=== PATIENT | female | born 1950 | race Caucasian/White ===

== ENCOUNTER 2024-09-09 08:44 | Outpatient (CLI) | payer MEDICARE, SELFPAY ==
--- NOTE | ~2024-09-09 | CT_ITS ---
CT IAC/mastoids BI wo con Ordering provider: Jaylen Calderon M.D. Technique: CT temporal bones was performed by obtaining thin slice axial images. Coronal and sagittal reformatted images were also obtained. No contrast was administered. Reason for exam: . Central perforation of tympanic membrane, right ear . Comparison: None. Findings: RIGHT TEMPORAL BONE: Minimal opacification the mastoid air cells seen posteriorly and inferiorly othe rwise, The mastoid air cells are normal and well aerated. The external auditory canal is normal and w ell aerated. The tympanic membrane as visualized is slightly retracted. Possibility of a defect seen anteriorly is not excluded. Otherwise normal. Clinical evaluation advised. The middle ear (including the epitympanum, mesotympanum and hypotympanum) is normal and well aerated. The tegmen tympani is int act. The scutum is normal. The auditory ossicles are normal. The cochlea, vestibule, vestibular and cochlear aqueduct are normal. The semicircular canals are normal. The facial nerve canal is normal . The internal auditory canal is normal. The carotid canal and jugular foramen are normal. The tem poromandibular joint is normal. LEFT TEMPORAL BONE: The mastoid air cells are normal and well aerated. The external auditory canal is normal and well aerated. The tympanic membrane as visualized is intact and normal. The middle ear ( including the epitympanum, mesotypanum and hypotympanum) is normal and well aerated. The tegmen tympa ni is intact. The scutum is normal. The auditory ossicles are normal. The cochlea, vestibule, vest ibular and cochlear aqueduct are normal. The semicircular canals are normal. The facial nerve canal is normal. The internal auditory canal is normal. The carotid canal and jugular foramen are ewa l. The temporomandibular joint is normal. Slight widening of the spaces around the brain in the frontal areas is noted which may indicate CSF h ygromas. Proper imaging is advised. Right sphenoid sinus disease. Otherwise, The visualized brain par enchyma, paranasal sinuses, and superficial soft tissues are normal for patient's age. IMPRESSION: Slight widening of the spaces around the frontal lobes. Proper imaging is advised to exclude or confi rm CSF hygromas. Right sphenoid sinusitis. Possible slight retraction of the tympanic membrane. Indication anteriorly cannot be excluded. Clinical evaluation advised. Minimal effusion the right mas toid air cells posteriorly and inferiorly. Otherwise no definite abnormality seen bilaterally. Reviewed, dictated and finalized at location A. IMPRESSION: Slight widening of the spaces around the frontal lobes. Proper imaging is advis ed to exclude or confirm CSF hygromas. Right sphenoid sinusitis. Possible slight retraction of the tympanic membrane. Indication anteriorly cannot be excluded. Clinical evaluation advised. Minimal effusion the right mastoid air cells posteriorly and inferiorly. Otherwise no d efinite abnormality seen bilaterally.
== END 2024-09-09 08:45 | disposition home or self-care (01) ==
LOC: MICIMG 08:44
PROVIDERS: PCP Family Medicine; Visit Provider Otolaryngology
DX: H72.01 Central perforation of tympanic membrane, right ear (principal); H90.6 Mixed conductive and sensorineural hearing loss, bilateral; H70.10 Chronic mastoiditis, unspecified ear; J32.3 Chronic sphenoidal sinusitis
CPT/HCPCS: 70480

== ENCOUNTER 2024-10-20 09:58 | Outpatient (CLI) | payer MEDICARE, SELFPAY ==
--- OUTSIDE RECORDS SUMMARY | 2024-10-20 10:24 | XMS_ITS | Encounter Summary ---
Author Organization [facility] Address [facility] [place] [address] Care Team Providers Care Liquor Rectifier Name Role Phone Cb Rivas MD Primary Care Provider [phone] Belinda Hutton MD Unavailable Encounter Details Date Type Department Care Team (Late st Contact Info) Description 08/31/2018 Abstract SFL CONVERSION [address] [place] [address] , Generic Conversion, Social History Tobacco Use Types Packs/Day Years Used Date Smoking Tobacco: Never Assessed Comments Unknown Sex and Gender Information Value Date Recorded Sex Assigned at Female 01/22/2024 3:47 PM CDT Legal Sex Female 10:16 PM MENTAL HEALTH SPECIALIST Gender Identity Female 01/22/2024 3:47 PM CDT Sexual Orientation Straight 01/22/2024 3: 47 PM CDT documented as of this encounter Plan of Treatment Upcoming Encounters Date Type Department Care Team (Late st Contact Info) Description 02/11/2025 11:30 AM MENTAL HEALTH SPECIALIST Office Visit [facility] [address] [place] [address] Belinda Hutton MD [address], [place] [id number] documented as of this encounter Visit Diagnoses Not on filedocumented in this encounter Care Teams Liquor Rectifier Relationship Specialty Start Date End Date Cb Rivas MD [address] [place] [address] PCP - General FAMILY PRACTICE 03/17/19 Belinda Hutton MD [address] [place] [address] Consulting Physician CARDIOVASCULAR DISEASE 01/03/23 documented as of this encounter
--- OUTSIDE RECORDS SUMMARY | 2024-10-20 10:24 | XMS_ITS | Clinical Summary ---
Author Organization [facility] Address [facility] [place] [address] Care Team Providers Care Printed Circuit Board Designer Name Role Phone Cb Rai MD Primary Care Provider [phone] Belinda Hutton MD Unavailable Allergies Active Allergy Reactions Criticality Noted Date Comments Codeine Nausea and Vomiting,Unknown 06/30/19 16 Medications atorvastatin (LIPITOR) 20 MG tablet Take 1 tablet (20 mg total) by mouth nightly at bedtime. Active pantoprazole EC (PROTONIX) 40 MG tablet Take 1 tablet (40 mg total) by mouth daily. Active cycloSPORINE (RESTASIS) 0.05 % ophthalmic emulsion 1 drop. As directed Active aspirin EC (ECOTRIN) 81 MG tablet Take 1 tablet (81 mg total) by mouth daily. Active Vitamin D3 (VITAMIN D) 50 mcg tablet Take 1 tablet (50 mcg total) by mouth daily. Active Fluocinolone Acetonide 0.01 % Oil Place 1 drop into both ears daily. Pt hasn't started taking yet 12/04/2023 Active Active Problems Problem Noted Date Diagnosed Date Serotonin syndrome 01/22/2024 Hyperlipidemia 01/22/2024 MDD (major depressive disorder) 01/22/2024 GERD (gastroesophageal reflux disease) Vitamin D deficiency 01/22/2024 Family History Medical History Relation Comments Heart Attack Brother Heart Attack Father Open Heart Father ischemic heart disease Father Heart Attack Maternal Grandfather Heart Attack Mother ischemic heart disease Mother Breast Cancer Sister Heart Attack Sister Relation Status Comments Brother Father Maternal Grandfather Mother Sister Social History Tobacco Use Types Packs/Day Years Used Date Smoking Tobacco: Never Tobacco Cessation:Counseling Given: Not Answered Alcohol Use Standard Drinks/Week Comments Never 0 (1 standard drink = 0.6 oz pur e alcohol) B1300 Health Literacy Answer Date Recor ded How often do you need to hav e someone help you when you read instructions, pamphlets, or other written material from your doctor or pharmacy? Never 01/22/2024 [facility] Utilities Answer Date Recorded In the past 12 months has th e electric, gas, oil, or water company threatened to shut off services in your home? No 01/22/2024 Humiliation, Afraid, Rape, and Kick questionnair e Answer Date Recorded Within the last year, have y ou been afraid of your partner or ex-partner? No 01/22/2024 Within the last year, have y ou been humiliated or emotionally abused in other ways by your partner or ex-partner? No Within the last year, have y ou been kicked, hit, slapped, or otherwise physically hurt by your partner or ex-partner? No 01/22/2024 Within the last year, have y ou been raped or forced to have any kind of sexual activity by your partner or ex-partner? No 01/22/2024 Social Connection and Isolat ion Panel [NHANES] Answer Date Recorded In a typical week, how many times do you talk on the phone with family, friends, or neighbors? More than three times a week 01/22/2024 How often do you get togethe r with friends or relatives? Once a week 01/22/2024 How often do you attend [facility] or restorationist services? Never 01/22/2024 Do you belong to any clubs o r organizations such as islam groups, unions, fraternal or athletic groups, or school groups? No 01/22/2024 How often do you attend meet ings of the clubs or organizations you belong to? Never 01/22/2024 Are you , , di vorced, , never , or living with a partner? 01/22/2024 AUDIT-C Answer Date Recorded Q1: How often do you have a drink containing alcohol? Never 01/22/2024 Q2: How many drinks containi ng alcohol do you have on a typical day when you are drinking? Patient does not drink Q3: How often do you have si x or more drinks on one occasion? Never 01/22/2024 Overall Financial Resource Strain (CARDIA) Answe r Date Recorded How hard is it for you to pa y for the very basics like food, housing, medical care, and heating? Not hard at all 01/22/2024 [facility] - Occupational Stress Questionnaire Answer Date Recorded Do you feel stress - tense, restless, nervous, or anxious, or unable to sleep at night because your mind is troubled all the time - these days? To some extent 01/22/2024 Exercise Vital Sign Answer Date Recorde d On average, how many days pe r week do you engage in moderate to strenuous exercise (like a brisk walk)? 2 days 01/22/2024 On average, how many minutes do you engage in exercise at this level? 20 min 01/22/2024 Hunger Vital Sign Answer Date Recorded Within the past 12 months, y ou worried that your food would run out before you got the money to buy more. Never true 01/22/20 24 Within the past 12 months, t he food you bought just didn't last and you didn't have money to get more. Never true 01/22/2024 PRAPARE - Transportation Answer Date Re corded In the past 12 months, has l ack of transportation kept you from medical appointments or from getting medications? No 12/25 In the past 12 months, has l ack of transportation kept you from meetings, work, or from getting things needed for daily living? No 01/22/2024 Housing Stability Vital Sign Answer [place] e Recorded In the last 12 months, was t here a time when you were not able to pay the mortgage or rent on time? No 01/22/2024 In the past 12 months, how m any times have you moved where you were living? 0 01/22/2024 At any time in the [facility], were you homeless or living in a senior living (including now)? No 01/22/2024 Comments No Sex and Gender Information Value Date Recorded Sex Assigned at Female 01/22/2024 3:47 PM CDT Legal Sex Female 10:16 PM SPINNER FIXER Gender Identity Female 01/22/2024 3:47 PM CDT Sexual Orientation Straight 01/22/2024 3: 47 PM CDT Last Filed Vital Signs Vital Sign Reading Time Taken Comments Blood Pressure 142/76 01/24/2024 4:23 AM CDT Pulse 77 01/24/2024 4:23 AM CDT Temperature 35.7 C (96.3 F) 01/24/2024 4:23 AM CDT Respiratory Rate 16 01/24/2024 4:23 AM CDT Oxygen Saturation 95% 01/24/2024 4:23 AM CDT Inhaled Oxygen Concentration - - Weight 83.9 kg (185 lb) 01/24/2024 4:23 AM CDT Height 162.6 cm (5' 4) 01/22/2024 3:53 PM CDT Body Mass Index 31.76 01/22/2024 3:53 PM CDT Plan of Treatment Upcoming Encounters Date Type Department Care Team (Late st Contact Info) Description 02/11/2025 11:30 AM SPINNER FIXER Office Visit [facility] [place] [id number] Belinda Hutton MD [address] [place] [address] Health Maintenance Due Date Last Done Comments Colorectal Cancer Screening Colonoscopy (10 Years) 1950 Hepatitis C 12/02/1969 DTaP, Tdap and Td Vaccines ( 1 - Tdap) 12/02/1970 Pneumococcal Vaccine: 50+ Years (1 of 1 - PCV) 12/02/2001 Zoster Vaccines (1 of 2) 12/02/2001 Annual Medicare Wellness Visit 12/02/2016 COVID-19 Vaccine (1 - 2023-2 5 season) 2023 Mammogram Screening 12/19/2025 12/20/2023, 10/13/2022, 08/31/2020 RSV Immunization or 60+ Years (1 - 1-dose 75+ series) 12/02/2026 Dexa Scan (General) Completed 01/25/2023 Meningococcal B Vaccine Aged Out No l onger eligible based on patient's age to complete this topic Meningococcal Vaccine Aged Out No drea risa eligible based on patient's age to complete this topic RSV Immunizations Under 20 Months Aged Out No longer eligible b ased on patient's age to complete this topic Procedures Procedure Name Priority Date/Time Associated Diagnosis Comments MG SCREENING W HENRIK STEPHANIE DIGI Routine 12/20/2023 8:41 AM CDT Visit for screening mammogram BONE DENSITY/DEXA Routine 01/25/2023 10: 11 AM CDT Post-menopausal from Last 3 Months or Most Recently Relevant to Health Maintenance Results * MG SCREENING W HENRIK STEPHANIE DIGI (12/20/2023 8:41 AM CDT) Anatomical Region Laterality Modality Breast Bilateral Mammography 12/20/2023 9:12 AM CDT Impressions 12/20/2023 9:13 AM CDT IMPRESSION: No suspicious change since the previous exams. Recommendation: 1: Routine Screening Bilateral in 1 Year Assessment: ACR BI-RADS 2 - BENIGN FINDING(S) Ordered By: CB RAI Interpreted By: Curtis Celeste MD, 12/20/2023 9:12 AM Narrative 12/20/2023 9:13 AM CDT [address] [place] [address] Examination: Digital screening mammogram with CAD. Clinical history: Asymptomatic patient presents for routine screening. Comparison: 10/13/2022, 08/31/2020, 05/07/2018, 05/10/2016. Technique: Bilateral digital mammograms. The exam was interpreted with the use of a computer-aided detection (CAD) system. Additional 3-D tomosynthesis images were acquired. Tissue density: The breast tissue contains scattered fibroglandular densities. Findings: The breast tissue contains scattered fibroglandular densities. Metallic biopsy marker on the right again evident. No suspicious mass, microcalcification or area of architectural distortion can be identified. From a mammographic standpoint, routine followup in one year would seem adequate. us Cb Rai MD MAMMO Final Result * BONE DENSITY/DEXA (01/25/2023 10:11 AM CDT) Anatomical Region Laterality Modality Bone Bone Density 01/25/2023 2:07 PM CDT Impressions 01/25/2023 2:09 PM CDT Impression: 1. Within normal limits in the lumbar spine. 2. Consistent with osteoporosis in the right hip and osteopenia in the left hip. Ordered By: CB RAI Interpreted By: Curtis Celeste MD, 01/25/2023 2:07 PM Narrative 01/25/2023 2:09 PM CDT Examination: DEXA Bone densitometry Clinical history: Postmenopausal. Osteoporosis screening. Comparison: None. Technique: DEXA bone mineral density evaluation was performed in the AP projection over the lumbar spine and over both hips in the AP projection utilizing standard imaging techniques. Assessment: The BMD measured at the AP spine L1-L4 is 0.969 g/cm2 with a T-score of -0.7 and a Z-score of 1.5. Bone density is up to 10% below young normal. This patient is considered normal according to the World Health Organization (WHO) criteria. Fracture risk is low. The BMD measured at the femoral neck left is 0.690 g/cm2 with a T-score of -1.4 and a Z-score of 0.4. The patient is considered osteopenic according to World Health Organization (WHO) criteria. Bone density is between 10 and 25% below young normal. Fracture risk is moderate. Treatment is advised. The BMD measured at the femoral neck right is 0.528 g/cm2 with a T-score of -2.9 and a Z-score of -1.0. This patient is considered osteoporotic according to the world health organizations (WHO) criteria. Fracture risk is high. Pharmacological treatment, if not already prescribed should be considered. If pharmacological treatment is utilized, a followup bone density is recommended in one year to monitor response to therapy. FRAX 10-year fracture risk: Major Osteoporotic Fracture: 25%. Hip Fracture: 7.5%. Recommendations: All patients should ensure an adequate intake of dietary calcium and vitamin D. The NOF recommend adults under the age of 50 need 1000 mg of calcium and 400-800 IU of vitamin D daily. Effective therapy for the prevention and treatment of osteoporosis include biphosphonates. Follow-up: People with diagnosed cases of osteoporosis or at high risk for fracture should have regular bone mineral density test. For patients eligible for Medicare, routine testing is allowed once every 2 years. Testing frequency can be increased to one year for patients who have rapidly progressing disease, those who are receiving or discontinuing medical therapy to restore bone mass, or have additional risk factors. Based on these results, a followup exam is recommended in 1-2 years. Procedure Note Curtis Celeste MD - 01/25/2023 Examination: DEXA Bone densitometry Clinical history: Postmenopausal. Osteoporosis screening. Comparison: None. Technique: DEXA bone mineral density evaluation was performed in the APprojection over the lumbar spine and over both hips in the AP projectionutilizing standard imaging techniques. Assessment: The BMD measured at the AP spine L1-L4 is 0.969 g/cm2 with a T-score of-0.7 and a Z-score of 1.5. Bone density is up to 10% below youngnormal. This patient is considered normal according to the World HealthOrganization (WHO) criteria. Fracture risk is low. The BMD measured at the femoral neck left is 0.690 g/cm2 with a T-score of-1.4 and a Z-score of 0.4. The patient is considered osteopenicaccording to World Health Organization (WHO) criteria. Bone density isbetween 10 and 25% below young normal. Fracture risk is moderate.Treatment is advised. The BMD measured at the femoral neck right is 0.528 g/cm2 with a T-scoreof -2.9 and a Z-score of -1.0. This patient is considered osteoporoticaccording to the world health organizations (WHO) criteria. Fracture riskis high. Pharmacological treatment, if not already prescribed should beconsidered. If pharmacological treatment is utilized, a followup bonedensity is recommended in one year to monitor response to therapy. FRAX 10-year fracture risk: Major Osteoporotic Fracture: 25%. Hip Fracture: 7.5%. Recommendations: All patients should ensure an adequate intake of dietary calcium andvitamin D. The NOF recommend adults under the age of 50 need 1000 mg ofcalcium and 400-800 IU of vitamin D daily. Effective therapy for theprevention and treatment of osteoporosis include biphosphonates. Follow-up: People with diagnosed cases of osteoporosis or at high risk for fractureshould have regular bone mineral density test. For patients eligible forMedicare, routine testing is allowed once every 2 years. Testing frequencycan be increased to one year for patients who have rapidly progressingdisease, those who are receiving or discontinuing medical therapy torestore bone mass, or have additional risk factors. Based on these results, a followup exam is recommended in 1-2 years. Impression: 1. Within normal limits in the lumbar spine. 2. Consistent with osteoporosis in the right hip and osteopenia in theleft hip. Ordered By: CB RAI Interpreted By: Curtis Celeste MD, 01/25/2023 2:07 PM us Cb Rai MD DEXA Final Result from Last 3 Months or Most Recently Relevant to Health Maintenance Insurance MEDICARE [facility] MEDICARE [facility] Advance Directives * Full Code (Latest Code Status on File) Date Activated Date Inactivated Comments 01/22/2024 4:21 PM 01/24/2024 12:01 PM Care Teams Printed Circuit Board Designer Relationship Specialty Start Date End Date Cb Rai MD [address] [place] [address] [place] [address] PCP - General FAMILY PRACTICE 03/17/19 Belinda Hutton MD [address] [place] [address] Consulting Physician CARDIOVASCULAR DISEASE 01/03/23
== END 2024-10-20 09:59 | disposition home or self-care (01) ==
LOC: ANHAUDIO 09:59
PROVIDERS: PCP Family Medicine; Visit Provider Otolaryngology
DX: H90.6 Mixed conductive and sensorineural hearing loss, bilateral (principal); H72.01 Central perforation of tympanic membrane, right ear; Z97.4 Presence of external hearing-aid
CPT/HCPCS: 92557; 92567